=== PATIENT | male | born 1950 | race Caucasian/White ===

== ENCOUNTER 2022-04-06 14:06 | Emergency (ER) | payer MEDICARE ==
[~2022-04-06] VITALS: Ht 180.3 cm; Wt 109.0 kg
[2022-04-06] MEDS ORDERED: [UNRECOGNIZED DRUG - OTHER] PO (14:38)
[2022-04-06] MEDS ORDERED: ATORVASTATIN CA40 MG PO (14:39)
[2022-04-06] MEDS ORDERED: BAYER CHEWABLE81 MG PO (14:39)
[2022-04-06] MEDS ORDERED: COREG3.125 MG PO (14:40)
[2022-04-06] MEDS ORDERED: LASIX40 MG PO (14:40)
[2022-04-06] MEDS ORDERED: SEROQUEL50 MG PO (14:41)
[2022-04-06] MEDS ORDERED: ZESTRIL10 MG PO (14:41)
[2022-04-06] MEDS ORDERED: TOPROL XL25 MG PO (14:42)
--- OUTSIDE RECORDS SUMMARY | 2022-04-06 15:52 | XMS ---
PreManage Notification: WILMAR FELIX Security Procedures Tech Events No recent Security Events currently on file CRITERIA MET - [facility] - 2 Visits in 30 Days CARE PROVIDERS KIERA JIM High Pressure Boiler Operator: Foot \T\ Ankle Surgery Current PHONE: [phone] MIKE POLLARD Internal Medicine Current PHONE: [phone] KRISTOPHER MERAZ Nurse Practitioner: Family Current PHONE: Unknown BRITTANI DAVIS Internal Medicine Current PHONE: [phone] Hayley Valerio Community Health Worker 02/10/2021-Current PHONE: [phone] ARIANNA OH Nurse Practitioner: Family Current PHONE: [phone] NOA CHIRINOS Nurse Practitioner Current BULL PHONE: [phone] IRVING INDIANOLA [facility] Current PHONE: Unknown TOBIAS ROBERTSON [facility] Current PHONE: [phone] [place] has no Care Guidelines for this patient. Tari VISIT COUNT (12 MO.) [address] [place] [id number] REBECCA Mckeon TOTAL 4 NOTE: Visits indicate total known visits. ED/UCC VISIT TRACKING (12 MO.) 04/06/2022 14:06 [facility] [place] TYPE: Emergency COMPLAINT: - URINE PROBLEM 03/13/2022 14:09 [facility] [place] TYPE: Emergency COMPLAINT: - CONFUSION DIAGNOSES: - CONFUSION 09/12/2021 14:46 [facility] [place] TYPE: Emergency DIAGNOSES: - Other fluid overload - Other forms of dyspnea - SHORTNESS OF BREATH 06/19/2021 16:58 [facility] [place] TYPE: Emergency DIAGNOSES: - Non-ST elevation (NSTEMI) myocardial infarction - Heart failure, unspecified - Other nonspecific abnormal finding of lung field - Hypoxemia - SHORTNESS OF BREATH INPATIENT VISIT TRACKING (12 MO.) 03/13/2022 14:09 [facility] [place] TYPE: Medical Surgical DIAGNOSES: - Other forms of dyspnea - Hypoxemia - Heart failure, unspecified - Chronic obstructive pulmonary disease with (acute) exacerbation - Chronic systolic (congestive) heart failure 06/20/2021 04:57 [facility] TYPE: General Medicine DIAGNOSES: - Heart failure, unspecified - Acute systolic (congestive) heart failure - Non-ST elevation (NSTEMI) myocardial infarction - Acute respiratory failure with hypoxia - Ventricular tachycardia - Atherosclerotic heart disease of [place] coronary artery without angina pectoris - [place] CHF, NSTEMI [email or web address]
== END 2022-04-06 18:42 | disposition home or self-care (01) ==
LOC: ED 14:06
PROC: 4A0D7LZ Measurement of Urinary Volume, Via Natural or Artificial Opening (ICD-10-PCS; principal; 2022-04-06)
PROC: 0T9B70Z Drainage of Bladder with Drainage Device, Via Natural or Artificial Opening (ICD-10-PCS; 2022-04-06)
DX: R31.9 Hematuria, unspecified (principal); J44.9 Chronic obstructive pulmonary disease, unspecified; I50.9 Heart failure, unspecified; E78.5 Hyperlipidemia, unspecified; Z88.0 Allergy status to penicillin; Z79.899 Other long term (current) drug therapy; Z79.82 Long term (current) use of aspirin
CPT/HCPCS: 51702; 51798; 81001; 99283-25